=== PATIENT | male | born 2000 | race Caucasian/White ===

== ENCOUNTER 2024-05-23 16:37 | Inpatient (IN) ==
[2024-05-23 17:39] LABS: Basophils # (auto) 0.02 K/uL (0.00-0.20); Basophils % (auto) 0.2 %; Eosinophils # (auto) 0.02 K/uL (0.00-0.50); Eosinophils % (auto) 0.2 %; Hematocrit (blood only) 44.1 % (42.0-52.0); Hemoglobin 16.1 g/dl (14.0-18.0); Immature Granulocytes # (auto) 0.03 K/uL (0.01-0.20); Immature Granulocytes % (auto) 0.2 %; Lymphocytes # (auto) 1.64 K/uL (1.20-3.40); Lymphocytes % (auto) 12.4 %; Mean Corpuscular Hemoglobin 32.3 pg (25.0-34.0); Mean Corpuscular Hgb Conc 36.5 g/dL (32.0-36.0); Mean Corpuscular Volume 88.4 fL (80.0-100.0); Monocytes # (auto) 0.74 K/uL (0.11-0.59); Monocytes % (auto) 5.6 %; Neutrophils % (auto) 81.4 %; Platelet Count 202 K/uL (130-400); RDW Coefficient of Variation 12.1 % (11.5-14.5); RDW Standard Deviation 39.6 fL (36.4-46.3); Red Blood Count 4.99 M/uL (4.70-6.10); White Blood Count 13.25 K/ul (4.8-10.8)
[2024-05-23 18:00] LABS: Albumin Globulin Ratio 1.3 (0.9-2); Albumin Level 4.7 gm/dl (3.4-5.0); BUN Creatinine Ratio 10.5 (10-20); Bilirubin,Total 1.2 mg/dl (0.2-1.0); Calcium 9.7 mg/dl (8.6-10.3); Creatinine Clr Calc Pharmacy 73.3 ml/min; Globulin 3.5 gm/dl (2.5-4.0); Total Protein 8.2 gm/dl (6.0-8.3)
[2024-05-23 19:41] LABS: Appearance Urine Clear (Clear); Bacteria Urine Automated None Seen (None Seen); Bilirubin Urine Negative (Negative); Blood Urine Negative (Negative); Cast Urine Automated 0-2 /lpf (0-2); Color Urine Dark Yellow; Epithelial Cell Urine Auto 0-2 /hpf (0-2); Glucose Urine UA Negative (Negative); Ketones Urine Trace (Negative); Leukocyte Esterase Urine Negative (Negative); Mucus Urine Present (None Prsent); Nitrite Urine Negative (Negative); Protein Urine 1+ (Negative); RBC Urine Automated 0-2 /hpf (0-2); Specific Gravity Urine 1.042 (1.000-1.030); Urobilinogen Urine Negative (Negative); WBC Urine Automated 0-5 /hpf (0-5)
[2024-05-23] MEDS: OPTIRAY 320 100ml IV ONE (20:40)
--- NOTE | 2024-05-23 22:03 | CT Scan Report ---
Exam(s): CT ABDOMEN + PELVIS With Contrast IV Amt: 92 cc opti 320 EXAM: CT Abdomen and Pelvis With Intravenous Contrast CLINICAL HISTORY: Reason for exam: lower abd pain. TECHNIQUE: Axial computed tomography images of the abdomen and pelvis with intravenous contrast. CTDI is 7.9 mGy and DLP is 404.48 mGy-cm. Automated exposure control was utilized for the study. A dose lowering technique was utilized adhering to the principles of ALARA. CONTRAST: Patient received 92 cc Optiray 320 of IV contrast COMPARISON: No relevant prior studies available. FINDINGS: Lung bases: Unremarkable. No mass. No consolidation. ABDOMEN: Liver: Unremarkable. No mass. Gallbladder and bile ducts: Unremarkable. No calcified stones. No ductal dilation. Pancreas: Unremarkable. No mass. No ductal dilation. Spleen: Unremarkable. No splenomegaly. Adrenals: Unremarkable. No mass. Kidneys and ureters: Unremarkable. No solid mass. No hydronephrosis. Stomach and bowel: There are scattered gas fluid levels within nondilated colon which is abnormal and suggests ileus or enteritis. There is a trace amount of free fluid in the pelvis. No other acute inflammatory changes are seen in the abdomen or pelvis. PELVIS: Appendix: The appendix extends medially and inferiorly off of the cecum into the pelvis. The wall is slightly thickened in the overall diameter is upper limits of normal measuring 9-10 mm. No surrounding inflammation or free fluid is seen. Suspicion for acute appendicitis is low. Bladder: Unremarkable. No mass. Reproductive: Unremarkable as visualized. ABDOMEN and PELVIS: Intraperitoneal space: See above. Bones/joints: No acute fracture. No dislocation. Soft tissues: Unremarkable. Vasculature: Unremarkable. No abdominal aortic aneurysm. Lymph nodes: Unremarkable. No enlarged lymph nodes. IMPRESSION: 1. The appendix extends medially and inferiorly off of the cecum into the pelvis. The wall is slightly thickened and the overall diameter is upper limits of normal measuring 9-10 mm. No surrounding inflammation or free fluid is seen. Suspicion for acute appendicitis is low. 2. There are scattered gas fluid levels within nondilated colon which is abnormal and suggests ileus or enteritis. There is a trace amount of free fluid in the pelvis. No other acute inflammatory changes are seen in the abdomen or pelvis. Communications: Call Doctor Above results Electronically signed by: Julien Ng MD 05/23/24 22:02 PM
--- NOTE | 2024-05-23 22:25 | Emergency Department Note ---
Impression & Plan Abdominal pain ED Provider Note ED Provider Note NAME: MANDY RENEE AGE:24 SEX: Male : 2000 ARRIVES VIA: Private vehicle INFORMANT: Patient ED PROVIDER(s): Jaki Downs DO CHIEF COMPLAINT: Abdominal pain HPI: This is a 24-year-old male presents to the emergency department complaining of lower abdominal pain that began early this morning around 6 AM. Patient states he did have some mild cold-like symptoms over the last several days but did not have abdominal pain until today. He did not have much of an appetite but denies any overt nausea or vomiting. No recent change in bowel movements. He states he did have some pain with urination. No known sick contacts, no recent travel. He denies fevers or chills. No recent change in diet, no new medications. He did try taking Advil at home for pain without relief. He denies any radiation of the pain into his back. He does admit to feeling a sense of abdominal bloating/distention with it. He notes pain is worse with movement and ambulation. PAST MEDICAL HISTORY:See Below PAST SURGICAL HISTORY:See Below FAMILY HISTORY:See Below SOCIAL HISTORY:See Below HOME MEDICATIONS:See Below ALLERGIES:See Below VITALS:See Below PHYSICAL EXAMINATION: GENERAL: alert, well appearing, well nourished, no distress, non-toxic EYE EXAM: normal conjunctiva, PERRL and EOM's grossly intact OROPHARYNX: no exudate, no erythema, lips, buccal mucosa, and tongue normal and mucous membranes are moist NECK: supple, no nuchal rigidity, no adenopathy, non-tender LUNGS: Clear to auscultation. Normal chest wall mechanics, no w/r/r HEART: no murmurs, S1 normal and S2 normal ABDOMEN: abdomen soft, mild lower abdominal pain with palpation, normo-active bowel sounds, no masses, no rebound or guarding. BACK: Back is symmetrical on inspection and there is no deformity, no midline tenderness, no CVA tenderness. SKIN: no rashes, petechiae, orbruising UPPER EXTREMITIES: upper extremities are grossly normal. FROM, nml pulses b/l. LOWER EXTREMITIES: No pitting edema. FROM, nml pulses b/l. NEURO EXAM: Normal sensorium, cranial nerves II-XII grossly intact, normal speech, no facial droop,nogross weakness of arms, no gross weakness of legs. Gross sensation intact. No ataxia. Vital Signs: reviewed and remarkable Differential Diagnosis: Colitis, SBO, viral syndrome, appendicitis, constipation, bowel obstruction, diverticulitis, UTI, foodborne illness, as well as others were considered MEDICAL DECISION MAKING: This is a 24-year-old male presents emergency room due to concern for lower abdominal pain. He was afebrile and vital signs stable on arrival. Labs drawn and sent, IV established, patient monitored on telemetry. Urine collected and sent additionally. After further discussion at bedside patient sent for CT of the abdomen and pelvis. CT did show slight abnormality of the appendix although his presentation not classic for appendicitis. Given concern for atypical CT findings, case discussed with on-call ANGELICA covering general surgery who came and evaluated the patient at bedside. After discussion with his attending, they decided to admit the patient for observation and possible surgical intervention. Patient hemodynamically stable throughout. Consultation(s): 2239: Discussed with Jose Monzon PA-C, with general surgery. He came and evaluated the patient at bedside. ER Treatment Provided: See below Diagnostics Interpreted By Me: -Cardiac Monitoring: An order was placed for continuous cardiac monitoring. The monitor shows a rate of 77 with normal sinus rhythm. -Laboratory studies: As stated above and show below. -Imaging studies: CT A/P: No peripheral, no SBO Triage Nursing Note Reviewed Prior/Outside Records Reviewed Past Med/Surg History Problem List (Updated 05/24/24 @ 15:29 by LEONIDAS Smith) Acute appendicitis S/P laparoscopic appendectomy Abdominal pain (Acute) Surgical History (Updated 05/24/24 @ 09:40 by LEONIDAS Smith) History of surgery right middle finger surgery as child Social History Smoking Status: Current every day smoker Tobacco Type: E-cigarettes / Vaping Second Hand Exposure: No; Do You Dip or Chew Tobacco: No; Hx Alcohol Use: Yes Alcohol type: beer Hx Substance Use: No Preferred Language: Yi Communication Ability: Effective Package Sorter Required: No Beliefs That Will Affect Care: None Current Living Situation: Alone Feels Safe at Home: Yes Assistive Devices: None Allergies Allergies Allergy/AdvReac Type Severity Reaction Status Date / Time nut - unspecified Allergy Severe Anaphylaxis Verified 05/24/24 00:17 seasonal Allergy Congested Uncoded 05/24/24 04:59 Home Meds Previous Rx's Medication Instructions Recorded oxycodone 5 mg tablet 5 - 10 mg (1 - 2 x 5 mg) PO 05/24/24 [id number] PRN pain #15 tabs Results & Data (ED) Vital Signs Vital Signs - 24 hr 05/23/24 17:08 05/23/24 19:18 05/23/24 19:29 Temperature 37.0 C Temperature Source Temporal Artery Scan Pulse Rate 91 H 72 Pulse Rate [Finger] 77 Respiratory Rate 20 18 Respiratory Effort / Characteristics Non-Labored Spontaneous Respiratory Depth Normal Blood Pressure 117/75 Blood Pressure [Left Arm] 125/76 Blood Pressure Mean 89 Blood Pressure Mean [Left Arm] 92 Blood Pressure Position [Left Arm] Pulse Oximetry 97 100 Oxygen Delivery Method Room Air Sepsis Recent Fever Within 48 Hours No Sepsis New/Unexplained Change in Mental Status N/A Sepsis Action Taken by Nursing No Action Required 05/23/24 21:00 Temperature Temperature Source Pulse Rate Pulse Rate [Finger] 75 Respiratory Rate 18 Respiratory Effort / Characteristics Non-Labored Spontaneous Respiratory Depth Blood Pressure Blood Pressure [Left Arm] 121/73 Blood Pressure Mean Blood Pressure Mean [Left Arm] 89 Blood Pressure Position [Left Arm] Lying Pulse Oximetry 99 Oxygen Delivery Method Room Air Sepsis Recent Fever Within 48 Hours Sepsis New/Unexplained Change in Mental Status Sepsis Action Taken by Nursing Laboratory Data 05/24/24 06:12 05/24/24 06:12 Lab Results 05/23/24 05/23/24 05/23/24 Range/Units 17:25 17:28 19:15 WBC 13.25 H (4.8-10.8) K/ul RBC 4.99 (4.70-6.10) M/uL Hgb 16.1 (14.0-18.0) g/dl Hct 44.1 (42.0-52.0) % MCV 88.4 (80.0-100.0) fL MCH 32.3 (25.0-34.0) pg MCHC 36.5 H (32.0-36.0) g/dL RDW Std Deviation 39.6 (36.4-46.3) fL RDW Coeff of Francy 12.1 (11.5-14.5) % Plt Count 202 (130-400) K/uL MPV 10.0 (9.4-12.4) fL Immature Gran % (Auto) 0.2 % Neut % (Auto) 81.4 % Lymph % (Auto) 12.4 % [place] % (Auto) 5.6 % Eos % (Auto) 0.2 % Baso % (Auto) 0.2 % Neut # (Auto) 10.80 H (1.40-6.50) K/uL Lymph # (Auto) 1.64 (1.20-3.40) K/uL [place] # (Auto) 0.74 H (0.11-0.59) K/uL Eos # (Auto) 0.02 (0.00-0.50) K/uL Baso # (Auto) 0.02 (0.00-0.20) K/uL Immature Gran # (Auto) 0.03 (0.01-0.20) K/uL PT 10.9 (9.0-12.0) Seconds INR 1.0 (0.9-1.1) APTT 29 (21-31) Seconds PTT Ratio 1.1 Sodium 137 (136-145) mmol/L Potassium 4.0 (3.5-5.1) mmol/L Chloride 101 (98-107) mmol/L Carbon Dioxide 30 (21-32) mmol/L Anion Gap 6 (3-11) BUN 15 (6-23) mg/dl Creatinine 1.43 H (0.6-1.4) mg/dl Est Cr Clr Drug Dosing 73.3 ml/min eGFR 70.61 BUN/Creatinine Ratio 10.5 (10-20) Glucose 91 (70-99(Fasting)) mg/dl Calcium 9.7 (8.6-10.3) mg/dl Total Bilirubin 1.2 H (0.2-1.0) mg/dl AST 21 (13-39) U/L ALT 25 (7-52) U/L Alkaline Phosphatase 75 (34-104) U/L Total Protein 8.2 (6.0-8.3) gm/dl Albumin 4.7 (3.4-5.0) gm/dl Globulin 3.5 (2.5-4.0) gm/dl Albumin/Globulin Ratio 1.3 (0.9-2) Lipase 7 L (11-82) U/L Urine Color Dark Yellow Urine Appearance Clear (Clear) Urine pH 6.0 (4.5-7.5) Ur Specific [place] 1.042 H (1.000-1.030) Urine Protein 1+ H (Negative) Urine Glucose (UA) Negative (Negative) Urine Ketones Trace H (Negative) Urine Blood Negative (Negative) Urine Nitrite Negative (Negative) Urine Bilirubin Negative (Negative) Urine Urobilinogen Negative (Negative) Ur Leukocyte Esterase Negative (Negative) Urine WBC (Auto) 0-5 (0-5) /hpf Urine RBC (Auto) 0-2 (0-2) /hpf U Hyaline Cast (Auto) 0-2 (0-2) /lpf U Epithel Cells (Auto) 0-2 (0-2) /hpf Urine Bacteria (Auto) None Seen (None Seen) Urine Mucus Present A (None Prsent) Administered Medications Discontinued Medications Bupivacaine HCl/Epinephrine Bitart (Bupivacaine/Epinephrine 0.25% 1:200,000 30 Ml Vial) Confirm Administered Dose 30 ml .ROUTE .[facility] ONE Stop: 05/24/24 08:09 Last Admin: 05/24/24 09:34 Dose: 30 ml Documented By: [id number] Piperacillin Sod/Tazobactam Sod (Zosyn) 4.5 gm in 100 mls @ 200 mls/hr IV NOW ONE; Protocol Stop: 05/23/24 23:00 Last Infusion: 05/24/24 00:40 Dose: Infused Documented By: Admin: 05/24/24 00:00 Dose: 200 mls/hr Documented By: HFW Sodium Chloride (Nss) 1,000 mls @ 100 mls/hr IV .Q10H [facility] Stop: 05/24/24 22:44 Last Infusion: 05/24/24 14:52 Dose: Infused Documented By: Infusion: 05/24/24 14:43 Dose: 0 mls/hr Documented By: Admin: 05/24/24 11:08 Dose: 100 mls/hr Documented By: Infusion: 05/24/24 10:41 Dose: Infused Documented By: Admin: 05/23/24 23:50 Dose: 100 mls/hr Documented By: HFW Piperacillin Sod/Tazobactam Sod (Zosyn) 4.5 gm in 100 mls @ 25 mls/hr IV Q8H [facility]AILA; Protocol Stop: 06/03/24 05:59 Last Infusion: 05/24/24 15:09 Dose: Infused Documented By: Infusion: 05/24/24 15:06 Dose: 0 mls/hr Documented By: Admin: 05/24/24 13:49 Dose: 25 mls/hr Documented By: Infusion: 05/24/24 10:42 Dose: Infused Documented By: Admin: 05/24/24 05:51 Dose: 25 mls/hr Documented By: HFW Influenza Virus Vacc Triv Types A&B (Influenza Vacc Xx0616-03(6m+)/Pf (Iiv3) 0.5ml Syr) 0.5 ml IM .ONCE ONE Stop: 05/24/24 00:39 Last Admin: 05/24/24 14:43 Dose: 0.5 ml Documented By: HRB Ioversol (Optiray 320 100ml) 92 ml IV ONCE ONE Stop: 05/23/24 20:41 Last Admin: 05/23/24 20:40 Dose: 92 ml Documented By: EAB Miscellaneous Information (Patient's Allergy Info Needs Entered) 1 each N/A NOW STA Stop: 05/23/24 22:38 Last Admin: 05/24/24 00:00 Dose: 1 each Documented By: HFW Oxycodone HCl (Oxycodone Hcl Ir 5 Mg Tab (Immediate Release)) 5 mg PO Q4H PRN PRN Reason: Moderate Pain (Scale 4, 5, 6) Stop: 06/07/24 10:37 Last Admin: 05/24/24 13:51 Dose: 5 mg Documented By: HRB Imaging Data Radiologist's Impression: Abdomen/Pelvis CT 05/23/24 20:25 CR Exam(s): CT ABDOMEN + PELVIS With Contrast IV Amt: 92 cc opti 320 EXAM: CT Abdomen and Pelvis With Intravenous Contrast CLINICAL HISTORY: Reason for exam: lower abd pain. TECHNIQUE: Axial computed tomography images of the abdomen and pelvis with intravenous contrast. CTDI is 7.9 mGy and DLP is 404.48 mGy-cm. Automated exposure control was utilized for the study. A dose lowering technique was utilized adhering to the principles of ALARA. CONTRAST: Patient received 92 cc Optiray 320 of IV contrast COMPARISON: No relevant prior studies available. FINDINGS: Lung bases: Unremarkable. No mass. No consolidation. ABDOMEN: Liver: Unremarkable. No mass. Gallbladder and bile ducts: Unremarkable. No calcified stones. No ductal dilation. Pancreas: Unremarkable. No mass. No ductal dilation. Spleen: Unremarkable. No splenomegaly. Adrenals: Unremarkable. No mass. Kidneys and ureters: Unremarkable. No solid mass. No hydronephrosis. Stomach and bowel: There are scattered gas fluid levels within nondilated colon which is abnormal and suggests ileus or enteritis. There is a trace amount of free fluid in the pelvis. No other acute inflammatory changes are seen in the abdomen or pelvis. PELVIS: Appendix: The appendix extends medially and inferiorly off of the cecum into the pelvis. The wall is slightly thickened in the overall diameter is upper limits of normal measuring 9-10 mm. No surrounding inflammation or free fluid is seen. Suspicion for acute appendicitis is low. Bladder: Unremarkable. No mass. Reproductive: Unremarkable as visualized. ABDOMEN and PELVIS: Intraperitoneal space: See above. Bones/joints: No acute fracture. No dislocation. Soft tissues: Unremarkable. Vasculature: Unremarkable. No abdominal aortic aneurysm. Lymph nodes: Unremarkable. No enlarged lymph nodes. IMPRESSION: 1. The appendix extends medially and inferiorly off of the cecum into the pelvis. The wall is slightly thickened and the overall diameter is upper limits of normal measuring 9-10 mm. No surrounding inflammation or free fluid is seen. Suspicion for acute appendicitis is low. 2. There are scattered gas fluid levels within nondilated colon which is abnormal and suggests ileus or enteritis. There is a trace amount of free fluid in the pelvis. No other acute inflammatory changes are seen in the abdomen or pelvis. Communications: Call Doctor Above results Electronically signed by: Julien Ng MD 05/23/24 22:02 PM Discharge Plan Visit Data Chief Complaint: Abdominal Pain Stated Complaint: ABD PAIN,NAUSEA, ED Provider: Jaki Downs Discharge Problem: Abdominal pain Patient Disposition: Admitted As Inpatient Discharge Instructions Interventions: ED Discharge Assessment Last Done: 05/23/24 23:19
--- NOTE | 2024-05-23 22:30 | History & Physical Report ---
Date of Service May 23, 2024 Assessment & Plan (1) Abdominal pain: Plan: I evaluated the patient in room B11. Due to the patient's findings on imaging and his clinical presentation we will bit the patient to the surgical service and proceed as follows: N.p.o. status will be implemented IV fluid provided for hydration Analgesics will be provided Antiemetics will be provided Will initiate antibiotics in form of Zosyn Patient has an abnormal CT scan of his abdomen and he has some clinical findings suggestive of early appendicitis. Will therefore tentatively plan on having the patient undergo an appendectomy by Dr. Jorge Sung on 05/24/2024. Will use SCDs for DVT prevention, no chemical means due to planned surgery Additional recommendations to be forthcoming based on Dr. Sung's review of this case, operative findings, and his recovery thereafter He will be a level 1 full code History of Present Illness Chief Complaint: Abdominal pain Primary Care Provider: NO PCP This is a 24-year-old male who presented to the emergency department secondary to abdominal pain. He notes that the pain began at approximately 6:00 AM the morning of 05/23/2024. He notes that the pain is present across his lower abdomen inferior to his umbilicus. He denies any radiation of the pain and notes that the pain seems to be better while he lies still and worse with certain movements. He specifically denies any nausea or vomiting and he also denies any fevers, shakes, or chills. He has never had any abdominal surgeries in the past. Since arrival to the emergency department he has had labs and imaging which I independently reviewed. He had a CT scan of the abdomen pelvis which showed that the appendix did extend medially and inferiorly off the cecum into the area of the pelvis. The appendiceal wall was thickened with a diameter of approximately 10 mm however there is no surrounding inflammation or free fluid. The patient did have some scattered gas/fluid levels in his colon which was nondilated concerning for possible enteritis. Labs included a CBC were white blood cell count was elevated 13.2. Hemoglobin and hematocrit are normal. Patient's platelet count is normal. Chemistry profile showed sodium and potassium as well as the BUN were normal. The creatinine was slightly elevated at 1.4. There is no elevation of patient's LFTs or lipase and the urinalysis was not indicative of infection. At the time of my interview the patient was resting comfortably in bed and he was in no distress. Concerning past medical history he denies any medical problems Concerning past surgical history he denies any surgeries Concerning social history he does not smoke but he does vape Concerning family history he notes that there are no chronic health conditions that run in his family. Allergies Allergy/AdvReac Type Severity Reaction Status Date / Time nut - unspecified Allergy Severe Anaphylaxis Verified 05/24/24 00:17 seasonal Allergy Congested Uncoded 05/24/24 04:59 Past Med/Surg History Problem List Abdominal pain (Acute) Surgical History (Updated 05/24/24 @ 08:16 by Orin Watts RN) History of surgery right middle finger surgery as child Social History Smoking Status: Current every day smoker Tobacco Type: E-cigarettes / Vaping Second Hand Exposure: No; Do You Dip or Chew Tobacco: No; Tobacco Cessation Education Requested by Patient: No Hx Alcohol Use: Yes Alcohol type: beer Hx Substance Use: No Preferred Language: Estonian Communication Ability: Effective Plisse Machine Operator Required: No Beliefs That Will Affect Care: None Current Living Situation: Alone Other Information That Helps Us Care for You: No Feels Safe at Home: Yes Safety Concerns: Feels Safe At This Time Review of Systems Review of Systems: All systems reviewed & are unremarkable except as noted in HPI & below Physical Exam Constitutional: WD/WN, vitals as above Eyes: no conjunctival abnormality ENMT: Ears: no hearing impairment and no external ear abnormality Mouth: no oropharynx abnormality Neck: trachea midline Respiratory: normal respiratory effort; no respiratory distress and no labored breathing Cardiovascular: Rate/Rhythm: regular rate and regular rhythm Gastrointestinal (Abdomen): Patient's abdomen is soft and nondistended. There is no rebound tenderness or guarding the patient did have pain with palpation which is greatest in the right lower quadrant of McBurney's point. With deep palpation in the left lower quadrant this did elicit pain in the right lower quadrant. Musculoskeletal: No gross orthopedic abnormalities of the extremities noted Skin: no rashes Neurologic: moves all extremities Psychiatric: A+Ox3, euthymic affect Results & Data Results & Data Vital Signs (Past 12 Hours) Vital Signs Temp Pulse Pulse Resp BP BP Pulse Ox 05/23/24 21:00 75 18 121/73 99 05/23/24 19:29 72 05/23/24 19:18 77 18 125/76 100 05/23/24 17:08 37.0 C 91 H 20 117/75 97 O2 Del Method 05/23/24 21:00 Room Air 05/23/24 19:29 05/23/24 19:18 Room Air 05/23/24 17:08 PG Care Time/CCT Total # of Minutes Spent Total Time Spent with Patient: Total time spent is greater than 50% in coordination of care (as documented) at patient's floor/unit and/or counseling patient: Coding Level of Care Code 98706 INT INP/OBS CARE 3/75MIN Diagnoses Abdominal pain R10.9
[2024-05-23] MEDS ORDERED: ACETAMINOPHEN 1,000 MG/100 ML VIAL IV PRN (22:33)
[2024-05-23] MEDS ORDERED: MoRPHine SULFATE 4 MG/ML 1 ML CARP\\VIAL IV PRN (22:33)
[2024-05-23] MEDS ORDERED: ONDANSETRON INJ 2 MG/ML 2 ML VIAL IV PRN (22:33)
[2024-05-23] MEDS: SODIUM CHLORIDE 0.9% 1,000 ML IV SCH (23:50)
[2024-05-24] MEDS: Patient's ALLERGY Info needs ENTERED STA
[2024-05-24] MEDS: PIPERACILLIN/TAZOBACTAM 4.5 GM/100 ML BAG IV ONE
[2024-05-24 00:04] LABS: Partial Thromboplastin Ratio 1.1; Partial Thromboplastin Time 29 Seconds (21-31); Prothrombin Time 10.9 Seconds (9.0-12.0)
[2024-05-24] MEDS: PIPERACILLIN/TAZOBACTAM 4.5 GM/100 ML BAG IV SCH (05:51)
[2024-05-24 06:32] LABS: Basophils # (auto) 0.03 K/uL (0.00-0.20); Basophils % (auto) 0.3 %; Eosinophils # (auto) 0.09 K/uL (0.00-0.50); Hematocrit (blood only) 39.8 % (42.0-52.0); Hemoglobin 14.6 g/dl (14.0-18.0); Immature Granulocytes # (auto) 0.03 K/uL (0.01-0.20); Immature Granulocytes % (auto) 0.3 %; Lymphocytes # (auto) 1.96 K/uL (1.20-3.40); Lymphocytes % (auto) 20.8 %; Mean Corpuscular Hemoglobin 32.7 pg (25.0-34.0); Mean Corpuscular Hgb Conc 36.7 g/dL (32.0-36.0); Mean Platelet Volume 10.3 fL (9.4-12.4); Monocytes # (auto) 0.57 K/uL (0.11-0.59); Monocytes % (auto) 6.1 %; Neutrophils # (auto) 6.74 K/uL (1.40-6.50); Neutrophils % (auto) 71.5 %; Platelet Count 194 K/uL (130-400); RDW Coefficient of Variation 11.9 % (11.5-14.5); RDW Standard Deviation 38.4 fL (36.4-46.3); Red Blood Count 4.47 M/uL (4.70-6.10); White Blood Count 9.42 K/ul (4.8-10.8)
[2024-05-24 06:47] LABS: BUN Creatinine Ratio 10.6 (10-20); Calcium 9.1 mg/dl (8.6-10.3); Creatinine Clr Calc Pharmacy 74.3 ml/min; Potassium 3.9 mmol/L (3.5-5.1)
[2024-05-24] MEDS ORDERED: fentaNYL citrate PF 100 MCG/2 ML VIAL ONE (07:34)
[2024-05-24] MEDS ORDERED: MIDAZOLAM HCL 1 MG/ML 2ML VIAL ONE (07:34)
[2024-05-24] MEDS ORDERED: LIDOCAINE 2% 2 ML VIAL/AMP(20MG/ML) INFIL ONE (07:35)
[2024-05-24] MEDS ORDERED: ROCURONIUM BROMIDE 10 MG/ML 5 ML VIAL IV ONE (07:35)
[2024-05-24] MEDS ORDERED: PROPOFOL IV EMULSION 10 MG/ML 20 ML VIAL IV ONE (07:35)
[2024-05-24] MEDS ORDERED: DEXAMETHASONE SOD INJ 4 MG/ML VIAL ONE (07:37)
[2024-05-24] MEDS ORDERED: ONDANSETRON INJ 2 MG/ML 2 ML VIAL ONE (07:37)
[2024-05-24] MEDS ORDERED: ATROPINE SULFATE 0.1 MG/ML 10ML SYR IV PRN (07:46)
[2024-05-24] MEDS ORDERED: ONDANSETRON INJ 2 MG/ML 2 ML VIAL IV PRN (07:46)
[2024-05-24] MEDS ORDERED: fentaNYL citrate PF 100 MCG/2 ML VIAL IV PRN (07:46)
[2024-05-24] MEDS ORDERED: ePHEDrine sulfate 50 MG/ML AMP IV PRN (07:46)
--- NOTE | 2024-05-24 07:46 | Anesthesiology Consultation ---
Date of Service May 24, 2024 Assessment & Plan Chart Review Chart Review: Acceptable Risk for Surgery and Patient NOT seen in Pre Admission Testing Consults Requested none History Surgery Operation Date: 05/24/24 10:50 Proposed Procedures p Laparoscopic Appendectomy - Jorge Sung DO Height/Weight Height: 5 ft 10 in Weight: 64.5 kg Allergies Allergy/AdvReac Type Severity Reaction Status Date / Time nut - unspecified Allergy Severe Anaphylaxis Verified 05/24/24 00:17 seasonal Allergy Congested Uncoded 05/24/24 04:59 Medications Active Medications Generic Name Dose Route Start Last Admin Trade Name Freq PRN Reason Stop Dose Admin Sodium Chloride 1,000 mls @ 100 mls/hr 05/23/24 22:45 05/23/24 23:50 Nss IV 05/24/24 22:44 100 mls/hr .Q10H [facility]AILA Administration Piperacillin Sod/Tazobactam Sod 4.5 gm in 100 mls @ 25 mls/hr 05/24/24 06:00 05/24/24 05:51 Zosyn IV 06/03/24 05:59 25 mls/hr Q8H SHAILA Administration Protocol Social History Smoking Status: Current every day smoker Do You Dip or Chew Tobacco: No Hx Alcohol Use: Yes Alcohol type: beer alcohol intake frequency: a few times a week Hx Substance Use: No Physical Exam Vital Signs Last Vital Signs Temp 97.9 F 05/24/24 07:20 Pulse 56 L 05/24/24 07:20 Resp 18 05/24/24 07:20 BP 111/70 05/24/24 07:20 Pulse Ox 99 05/24/24 07:20 O2 Del Method Room Air 05/24/24 07:20 Testing Laboratory Results 05/24/24 06:12 05/24/24 06:12 PT 10.9 Seconds (9.0-12.0) 05/23/24 17: INR 1.0 (0.9-1.1) 05/23/24 17: APTT 29 Seconds (21-31) 05/23/24 17:25 Urine Color Dark Yellow 05/23/24 19:15 Urine Appearance Clear (Clear) 05/23/24 19:15 Urine pH 6.0 (4.5-7.5) 05/23/24 19:15 Ur Specific [place] 1.042 (1.000-1.030) H 05/23/24 19:15 Urine Protein 1+ (Negative) H 05/23/24 19:15 Urine Glucose (UA) Negative (Negative) 05/23/24 19:15 Urine Ketones Trace (Negative) H 05/23/24 19:15 Urine Nitrite Negative (Negative) 05/23/24 19:15 Ur Leukocyte Esterase Negative (Negative) 05/23/24 19:15 Urine WBC (Auto) 0-5 /hpf (0-5) 05/23/24 19:15 Urine RBC (Auto) 0-2 /hpf (0-2) 05/23/24 19:15 U Hyaline Cast (Auto) 0-2 /lpf (0-2) 05/23/24 19:15 U Epithel Cells (Auto) 0-2 /hpf (0-2) 05/23/24 19:15 Urine Bacteria (Auto) None Seen (None Seen) 05/23/24 19:15
--- NOTE | 2024-05-24 07:47 | Surgery Progress Note ---
Date of Service May 24, 2024 Assessment & Plan (1) Abdominal pain: Plan: pt scheduled for lap appy this am with Dr Sung , discussed with patient and agreeable to surgery. Timing pending OR availability Continue NPO , IV fluids WBC 9, continue Zosyn Admission and Anticipated Discharge Date Admission Date: May 23, 2024 Supervising Physician Co-Signing Physician Notes Plan on laparoscopic appendectomy, possible open Consent was obtained, risks discussed including bleeding, infection, abscess Review of Systems Constitutional: no fever and no chills Respiratory: no dyspnea Gastrointestinal: + abdominal pain Physical Exam Constitutional: cooperative and comfortable; no acute distress Respiratory: normal respiratory effort and able to speak in complete sentences; no respiratory distress Cardiovascular: Rate/Rhythm: regular rate Results & Data Vital Signs (Past 12 Hours) Vital Signs Temp Pulse Resp BP Pulse Ox O2 Del Method 05/24/24 07:20 97.9 F 56 L 18 111/70 99 Room Air 05/23/24 23:44 98.4 F 80 16 121/80 99 Room Air 05/23/24 23:00 71 18 122/78 99 Room Air 05/23/24 22:31 71 18 125/81 98 Room Air 05/23/24 21:00 75 18 121/73 99 Room Air PG Care Time/CCT Total # of Minutes Spent Total Time Spent with Patient: Total time spent is greater than 50% in coordination of care (as documented) at patient's floor/unit and/or counseling patient: Coding Level of Care Code 46229 SUB INP/OBS CARE 05/06MIN Diagnoses Abdominal pain R10.9
[2024-05-24] MEDS ORDERED: SUGAMMADEX SODIUM 200 MG/2 ML VIAL IV ONE (09:13)
[2024-05-24] MEDS ORDERED: KETOROLAC 30 MG/ML VIAL ONE (09:13)
[2024-05-24] MEDS: BUPIVACAINE/EPINEPHRINE 0.25% 1:200,000 30 ML VIAL ONE (09:34)
--- NOTE | 2024-05-24 09:38 | Post Operative Brief Note ---
PG Immediate Post Op with CF Date of Surgery May 24, 2024 Pre & Post Diagnosis Operation Date: 05/24/24 10:50 Pre-Op Diagnosis: Appendicitis Post-Op Diagnosis: Appendicitis without perforation I identified the patient and participated in the time-out.: Yes Procedure Operation Date: 05/24/24 10:50 Actual Procedures p Laparoscopic Appendectomy(Not Applicable) - Jorge Sung DO Surgeon Jorge Sung DO Skilled Helper None Estimated Blood Loss 5 Findings See Below Acutely inflamed dilated appendix without perforation Specimens Specimen Description: A. appendix Drains Mckay Catheter Anesthesia Type General Complications none Disposition Disposition: Recovery Room
--- NOTE | 2024-05-24 09:40 | Operative Report ---
PG Post Operative Report Pre & Post Diagnosis Operation Date: 05/24/24 10:50 Pre-Op Diagnosis: Appendicitis Post-Op Diagnosis: Appendicitis without perforation I identified the patient and participated in the time-out.: Yes Procedure Operation Date: 05/24/24 10:50 Actual Procedures p Laparoscopic Appendectomy(Not Applicable) - Jorge Sung DO Surgeon Jorge Sung DO Hand Ii Tube Bender None Estimated Blood Loss 5 Findings See Below Acutely inflamed dilated appendix without perforation Specimens Appendix to pathology Drains None Anesthesia Type General Complications none Disposition Disposition: Recovery Room Indications 24 yo male with acute appendicitis Description of Procedure The patient was brought to the OR and placed in the supine position and SCD's placed. At this time he underwent general endotracheal anesthesia without incident. At this time a Mckay catheter was placed under sterile conditions. His abdomen was prepped and draped in the usual sterile fashion. He was given appropriate pre-operative antibiotics. A timeout was called, the procedure was verified as Laparoscopic appendectomy, possible open. Surgical, anesthesia and nursing teams agreed and the procedure was begun. After injection of 0.25% Marcaine with epinephrine, a supraumbilical incision was made using a #11 blade scalpel and carried down to the fascia with a hemostat. The abdomen was then elevated with towel clamps and entered using the Veress needle confirming position using the saline drop test. Pneumoperitoneum was established and 5mm trocar was placed. Laparoscope was introduced. No injury was seen from our entrance to the abdomen. At this time a 5mm suprapubic port and 12mm LLQ port were placed under direct visualization. The patient was placed in Trendelenburg and rotated to the left. At this time the appendix was visualized and the tip was freed and elevated toward the abdominal wall. The appendix appeared inflamed, and dilated without perforation. A window was created in the mesoappendix at the base of the appendix. A 45mm ronquillo load stapler was then fired across the base of the appendix which appeared healthy. The mesoappendix was then taken using Harmonic device. The appendix was then placed in an Endocatch bag and removed through the LLQ port site. Staple line was inspected and was intact. Hemostasis was complete. The 12 mm port was then closed at the fascial level using a 0 Vicryl suture using the suture passer. All ports were removed under direct visualization and no bleeding was noted. The abdomen was desufflated and the skin was closed using 4-0 Monocryl in a subcuticular fashion. Sterile dressings were applied. Mckay catheter was removed. The gina ent was then awakened from anesthesia having remained stable throughout the entire case and transported to PACU. All needle and sponge counts were correct x 2. I attest to the content of the Intraoperative Record and any orders documented therein. Any exceptions are noted below.
[2024-05-24] MEDS ORDERED: oxyCODONE HCL IR 5 MG TAB (IMMEDIATE RELEASE) PO PRN (10:38)
[2024-05-24 10:59] VITALS: TEMP 97.9
--- NOTE | 2024-05-24 11:12 | Anesthesiology Progress Note ---
Date of Service May 24, 2024 Anesthesia Post Procedure Vital Signs Vital Signs: Temp Pulse Pulse Pulse Resp BP BP 05/24/24 10:58 97.9 F 59 L 20 111/70 05/24/24 10:34 97.7 F 70 14 112/71 05/24/24 10:20 97.5 F L 67 14 113/64 05/24/24 10:10 68 13 119/65 05/24/24 10:00 79 20 120/68 05/24/24 09:51 96.8 F L 90 12 123/71 05/24/24 08:11 97.9 F 65 20 124/78 05/24/24 07:20 97.9 F 56 L 18 111/70 05/23/24 23:44 98.4 F 80 16 121/80 05/23/24 23:00 71 18 122/78 05/23/24 22:31 71 18 125/81 05/23/24 21:00 75 18 121/73 05/23/24 19:29 72 05/23/24 19:18 77 18 125/76 05/23/24 17:08 98.6 F 91 H 20 117/75 Pulse Ox O2 Del Method O2 Flow Rate 05/24/24 10:58 98 Room Air 05/24/24 10:34 100 Room Air 05/24/24 10:20 98 Room Air 0 05/24/24 10:10 100 Oxymask 4 05/24/24 10:00 100 Oxymask 4 05/24/24 09:51 100 Oxymask 8 05/24/24 08:11 99 Room Air 05/24/24 07:20 99 Room Air 05/23/24 23:44 99 Room Air 05/23/24 23:00 99 Room Air 05/23/24 22:31 98 Room Air 05/23/24 21:00 99 Room Air 05/23/24 19:29 05/23/24 19:18 100 Room Air 05/23/24 17:08 97 Pain Intensity Lower Abdomen: Pain Intensity: 3 Transfer of Care Handoff Completed per policy Notes Mental Status: alert / awake / arousable and participated in evaluation Patient Amnestic to Procedure: Yes Nausea / Vomiting: adequately controlled Pain: adequately controlled Airway Patency, RR, SpO2: stable & adequate BP & HR: stable & adequate Hydration State: stable & adequate Anesthetic Complications: no major complications apparent and Pt Satisfied with anesthetic care
[2024-05-24 13:33] VITALS: BP 105/65; PULSE 88; RESP 16; O2SAT 98
[2024-05-24] MEDS: oxyCODONE HCL IR 5 MG TAB (IMMEDIATE RELEASE) PO PRN (13:51)
[2024-05-24] MEDS: INFLUENZA VACC TS2024-25(6m+)/PF (IIV3) 0.5mL Syr IM ONE (14:43)
--- NOTE | 2024-05-24 15:32 | Discharge Summary ---
Date of Service May 24, 2024 Admission HPI Per Admitting Provider This is a 24-year-old male who presented to the emergency department secondary to abdominal pain. He notes that the pain began at approximately 6:00 AM the morning of 05/23/2024. He notes that the pain is present across his lower abdomen inferior to his umbilicus. He denies any radiation of the pain and notes that the pain seems to be better while he lies still and worse with certain movements. He specifically denies any nausea or vomiting and he also denies any fevers, shakes, or chills. He has never had any abdominal surgeries in the past. Since arrival to the emergency department he has had labs and imaging which I independently reviewed. He had a CT scan of the abdomen pelvis which showed that the appendix did extend medially and inferiorly off the cecum into the area of the pelvis. The appendiceal wall was thickened with a diameter of approximately 10 mm however there is no surrounding inflammation or free fluid. The patient did have some scattered gas/fluid levels in his colon which was nondilated concerning for possible enteritis. Labs included a CBC were white blood cell count was elevated 13.2. Hemoglobin and hematocrit are normal. Patient's platelet count is normal. Chemistry profile showed sodium and potassium as well as the BUN were normal. The creatinine was slightly elevated at 1.4. There is no elevation of patient's LFTs or lipase and the urinalysis was not indicative of infection. At the time of my interview the patient was resting comfortably in bed and he was in no distress. Concerning past medical history he denies any medical problems Concerning past surgical history he denies any surgeries Concerning social history he does not smoke but he does vape Concerning family history he notes that there are no chronic health conditions that run in his family. Principal Diagnosis acute appendicitis Discharge Exam Constitutional cooperative and comfortable; no acute distress Respiratory normal respiratory effort and able to speak in complete sentences; no respiratory distress Cardiovascular Rate/Rhythm: regular rate Gastrointestinal (Abdomen) Inspection/Auscultation: abdomen not distended Musculoskeletal no cyanosis or clubbing, extremities motor strength 5/5 Psychiatric A+Ox3, euthymic affect Discharge Data Allergies Allergy/AdvReac Type Severity Reaction Status Date / Time nut - unspecified Allergy Severe Anaphylaxis Verified 05/24/24 00:17 seasonal Allergy Congested Uncoded 05/24/24 04:59 Procedures Performed Operation Date: 05/24/24 10:50 Actual Procedures p Laparoscopic Appendectomy(Not Applicable) - Jorge Sung DO Ordered Studies 05/23/24 20:25 CT abd pelvis IV con only Stat Hospital Course (1) Acute appendicitis: This is a 24 yo male who presented to the [facility] ED on 05/23/24 with abdominal pain. Workup in the ED showed a WBC of [address] a/p concerning for early acute appendicitis (see HPI for full details). Patient made NPO with IVF and booked for the OR. On 05/24/24 the patient went to the OR with Dr Sung for a laparoscopic appendectomy. The patient tolerated the procedure well, see operative report for full details. Post operatively the patient's diet was advanced, pain managed on prn meds, and incisions clean/dry/intact. The patient was deemed stable for discharge to home the after of the procedure 05/24/24. The patient was given discharge instructions, follow up recommendations, return precautions and a prescription for narcotic pain medication. Total Time Total Time Spent Total Time Spent (In Minutes): 10 Discharge Plan Discharge Items Patient Disposition: Home - Self-Care Reason For Visit: APPY Discharge Diagnosis: laparoscopic appendectomy Activity: As commented below Lifting: No more than 10 pounds Bathing Comment: you can shower 05/25/24 . no soaking in pools/baths Exercise/Sports: Wait until after follow-up appointment Driving/Machine Use: no driving if taking narcotic pain medication Non-emergency contact: Surgeon Call non-emergency contact if: you have any medication questions, your symptoms worsen, your temperature is above 101.5, your wound has increased redness, your wound has increased drainage and your wound pain has increased Follow-up/Referrals: Jorge Sung DO [Physician] - (call office for follow up in 1-2 weeks ) PCP,NO [Primary Care Provider] - Diet: Regular Addtl Attending Provider Instructions: You have surgical glue called dermabond on your surgical site incisions. You may shower with this on. This will tend to come off within a couple of weeks. Do not pick at it. Pending Studies at Discharge: Yes Studies:: surgical pathology Stand-Alone Forms: My [employer], Work/School Release, Smoking Cessation Medications and DC Order Prescriptions: New oxycodone 5 mg tablet 5 - 10 mg PO .[id number] MDD no more than 6 tabs in 24hours PRN (Reason: pain) Qty: 15 0RF Discharge Orders: Discharge Order (Routine); Ordered 05/24/24 Ordered By: Manuel Bess/Other Patient Handouts: Appendectomy Lap Dc Admission Data Admit Date/Time: 05/23/24 22:35 Attending Provider: Jorge Sung Admit Provider: Jorge Sung Primary Care Provider: PCP,NO Other Interventions: Discharge Summary Assessment (RN) Last Done: 05/24/24 14:28 Supervising Physician Co-Signing Physician Notes Plan on laparoscopic appendectomy, possible open Consent was obtained, risks discussed including bleeding, infection, abscess Coding Level of Care Code 87000 IN/OBS DISCH 30 MIN/LESS Diagnoses Acute appendicitis K35.80
== END 2024-05-24 15:21 | disposition home or self-care (01) | DRG 399 ==
LOC: ED 16:37 → 3W 22:35